=== PATIENT | male | born 1950 | race African-American/Black ===

== ENCOUNTER 2023-11-27 16:20 | Inpatient (IN) | payer MEDICARE, OTHER ==
[2023-11-27] MEDS ORDERED: Dextrose 5% in Water 1,000 ML IV PRN (17:10)
[2023-11-27] MEDS ORDERED: Glucagon 1 MG/ML KIT IM PRN (17:10)
[2023-11-27] MEDS ORDERED: Dextrose 50% Abboject 50 ML SYRINGE SLOW IVP PRN (17:10)
[2023-11-27] MEDS ORDERED: Ondansetron PF 4 MG/2 ML Vial IVP PRN (17:12)
[2023-11-27 17:13] VITALS: BMI 25.4
[2023-11-27] MEDS: Lactated Ringer's 1,000 ML IV SCH ×2 (18:45→20:29)
[2023-11-27] MEDS: Mometasone 200 MCG/Formoterol 5 MCG 120 PUFF INHALER INH SCH (19:00)
[2023-11-27 19:16] LABS: Lactic Acid 3.11 mmol/L (0.5-2.2)
[2023-11-27] MEDS: Verapamil 240 MG SR.TAB PO SCH (20:32)
[2023-11-27] MEDS: Carvedilol 25 MG TAB PO SCH (20:32)
[2023-11-27] MEDS: cloNIDine 0.2 MG TAB PO SCH (20:32)
[2023-11-27] MEDS: hydrALAZINE 25 MG TAB PO SCH (20:32)
[2023-11-27] MEDS: Pantoprazole 40 MG VIAL IVP SCH (20:32)
[2023-11-27] MEDS: metroNIDAZOLE 500 MG in Premix 1 BAG IVPB SCH (21:15)
[2023-11-28 06:17] LABS: Hematocrit 33.4 % (42.0-52.0); Hemoglobin 10.4 g/dL (14.0-18.0); Mean Corpuscular HGB CONC 31.1 g/dL (32.0-36.0); Mean Corpuscular Hemoglobin 23.1 pg (27.0-31.0); Mean Corpuscular Volume 74.1 fL (78.0-98.0); Mean Platelet Volume 9.7 fL (7.4-10.4); Platelet Count 242 10x3/uL (130-400); RBC Distribution Width 14.6 % (11.5-14.5); Red Blood Cell (RBC) Count 4.51 mill/uL (4.70-6.10)
[2023-11-28 06:33] LABS: ALT (SGPT) 11 U/L (8-55); AST (SGOT) 30 U/L (5-34); Albumin 2.4 g/dL (3.4-4.8); Alkaline Phosphatase 65 U/L (40-110); Anion Gap 16 mmol/L (10-20); BUN (Urea Nitrogen) 69 mg/dL (8.4-25.7); Bilirubin, Total 0.3 mg/dL (0.2-1.2); Calc. Creatinine Clearance 26 mL/min (70-130); Calcium 8.5 mg/dL (7.8-10.44); Carbon Dioxide 23 mmol/L (23-31); Chloride 107 mmol/L (98-107); Estimated GFR 20; Globulin 3.8 g/dL (2.4-3.5); Glucose 83 mg/dL (80-115); Potassium 3.2 mmol/L (3.5-5.1); Protein, Total 6.2 g/dL (5.8-8.1); Sodium 143 mmol/L (136-145)
[2023-11-28 06:54] LABS: Band 35 % (5-11); Lymphocytes 11 % (21-51); Microcytosis SLIGHT = 6-15 cells HPF (0-5); Monocytes 10 % (0-10); Neutrophil 45 % (42-75); Platelet Adequacy Comment Platelets Normal; Smudge Cells 5.7 %
[2023-11-28] MEDS ORDERED: cefTRIAXone\\ROCEPHIN 1 GM in Sodium Chloride 0.9% 100 ML IVPB SCH (08:00)
[2023-11-28 11:17] LABS: Lactic Acid 1.89 mmol/L (0.5-2.2)
[2023-11-28] MEDS: Hydrochlorothiazide 25 MG TAB PO SCH (11:41)
[2023-11-28] MEDS: Furosemide 40 MG TAB PO SCH (11:41)
[2023-11-28] MEDS: cefTRIAXone\\ROCEPHIN 1 GM in Sodium Chloride 0.9% 100 ML IVPB SCH (11:41)
[2023-11-28] MEDS: Potassium Chloride 20 MEQ in Lactated Ringer's 1,000 ML IV SCH (11:42)
[2023-11-28] MEDS: Verapamil 120 MG TAB PO SCH ×2 (13:15→21:20)
[2023-11-28] MEDS: Polyethylene Glycol 3350 17 GM Packet PO SCH (21:45)
[2023-11-29 04:24] LABS: Hematocrit 29.6 % (42.0-52.0); Hemoglobin 9.5 g/dL (14.0-18.0); Mean Corpuscular HGB CONC 32.1 g/dL (32.0-36.0); Mean Corpuscular Hemoglobin 23.4 pg (27.0-31.0); Mean Corpuscular Volume 72.9 fL (78.0-98.0); Platelet Count 263 10x3/uL (130-400); RBC Distribution Width 14.4 % (11.5-14.5); Red Blood Cell (RBC) Count 4.06 mill/uL (4.70-6.10)
[2023-11-29 04:25] LABS: ALT (SGPT) 10 U/L (8-55); AST (SGOT) 33 U/L (5-34); Albumin 2.4 g/dL (3.4-4.8); Alkaline Phosphatase 66 U/L (40-110); Anion Gap 14 mmol/L (10-20); BUN (Urea Nitrogen) 54 mg/dL (8.4-25.7); Bilirubin, Total 0.4 mg/dL (0.2-1.2); Calc. Creatinine Clearance 32 mL/min (70-130); Calcium 8.7 mg/dL (7.8-10.44); Carbon Dioxide 24 mmol/L (23-31); Chloride 110 mmol/L (98-107); Estimated GFR 26; Glucose 87 mg/dL (80-115); Potassium 3.1 mmol/L (3.5-5.1); Protein, Total 6.4 g/dL (5.8-8.1); Sodium 145 mmol/L (136-145)
[2023-11-29 05:22] LABS: Anisocytosis SLIGHT = 6-15 cells HPF (0-5); Band 18 % (5-11); Eosinophils 2 % (0-10); Hypochromia SLIGHT = 6-15 cells HPF (0-5); Large Platelets 2.9 % (0-5); Lymphocytes 10 % (21-51); Macrocytosis SLIGHT = 6-15 cells HPF (0-5); Monocytes 3 % (0-10); Neutrophil 68 % (42-75); Platelet Adequacy Comment Platelets Normal; Smudge Cells 4.9 %
[2023-11-29] MEDS: Potassium Chloride 20 MEQ in Premix 1 BAG IVPB SCH (09:15)
[2023-11-29] MEDS ORDERED: Ipratropium/Albuterol 3 ML NEB NEB PRN (11:09)
[2023-11-29] MEDS ORDERED: Bisacodyl 10 MG SUPP PR PRN (12:27)
[2023-11-29] MEDS: Labetalol HCl 100 MG/20 ML VIAL IVPB SCH (12:35)
[2023-11-29] MEDS: Lactated Ringer's 1,000 ML IV SCH (17:08)
[2023-11-30 04:31] LABS: #Basophils 0.04 10x3/uL (0.0-0.2); %Basophils 0.4 % (0.0-1.0); %Eosinophils 1.7 % (0.0-10.0); %Lymphocytes 12.9 % (21.0-51.0); %Monocytes 7.9 % (0.0-10.0); %Neutrophils 76.7 % (42.0-75.0); Hematocrit 31.3 % (42.0-52.0); Hemoglobin 9.2 g/dL (14.0-18.0); Mean Corpuscular HGB CONC 29.4 g/dL (32.0-36.0); Mean Corpuscular Hemoglobin 22.5 pg (27.0-31.0); Mean Corpuscular Volume 76.7 fL (78.0-98.0); Mean Platelet Volume 10.1 fL (7.4-10.4); Platelet Count 281 10x3/uL (130-400); RBC Distribution Width 14.6 % (11.5-14.5); Red Blood Cell (RBC) Count 4.08 mill/uL (4.70-6.10)
[2023-11-30 04:44] LABS: ALT (SGPT) 10 U/L (8-55); AST (SGOT) 25 U/L (5-34); Albumin 2.3 g/dL (3.4-4.8); Alkaline Phosphatase 75 U/L (40-110); Anion Gap 18 mmol/L (10-20); BUN (Urea Nitrogen) 41 mg/dL (8.4-25.7); Bilirubin, Total 0.5 mg/dL (0.2-1.2); Calc. Creatinine Clearance 34 mL/min (70-130); Calcium 8.8 mg/dL (7.8-10.44); Carbon Dioxide 21 mmol/L (23-31); Chloride 109 mmol/L (98-107); Estimated GFR 30; Globulin 3.9 g/dL (2.4-3.5); Glucose 112 mg/dL (80-115); Potassium 3.1 mmol/L (3.5-5.1); Protein, Total 6.2 g/dL (5.8-8.1); Sodium 145 mmol/L (136-145)
[2023-11-30] MEDS: Furosemide 20 MG (2 mL) VIAL SLOW IVP SCH (08:40)
[2023-11-30] MEDS: cloNIDine 0.2mg/24 Hour PATCH TD SCH (09:17)
[2023-11-30] MEDS: Potassium Chloride 20 MEQ in Lactated Ringer's 1,000 ML IV SCH (09:38)
[2023-11-30] MEDS: hydrALAZINE 20 MG/ML VIAL SLOW IVP PRN (23:22)
[2023-12-01 04:18] LABS: #Basophils 0.07 10x3/uL (0.0-0.2); %Basophils 0.6 % (0.0-1.0); %Eosinophils 1.8 % (0.0-10.0); %Lymphocytes 12.7 % (21.0-51.0); %Monocytes 8.9 % (0.0-10.0); %Neutrophils 75.6 % (42.0-75.0); Hematocrit 32.8 % (42.0-52.0); Hemoglobin 10.1 g/dL (14.0-18.0); Mean Corpuscular HGB CONC 30.8 g/dL (32.0-36.0); Mean Corpuscular Hemoglobin 22.7 pg (27.0-31.0); Mean Corpuscular Volume 73.9 fL (78.0-98.0); Mean Platelet Volume 9.8 fL (7.4-10.4); Platelet Count 308 10x3/uL (130-400); RBC Distribution Width 14.3 % (11.5-14.5); Red Blood Cell (RBC) Count 4.44 mill/uL (4.70-6.10)
[2023-12-01 04:29] LABS: ALT (SGPT) 10 U/L (8-55); AST (SGOT) 22 U/L (5-34); Albumin 2.4 g/dL (3.4-4.8); Alkaline Phosphatase 74 U/L (40-110); Anion Gap 19 mmol/L (10-20); BUN (Urea Nitrogen) 34 mg/dL (8.4-25.7); Bilirubin, Total 0.4 mg/dL (0.2-1.2); Calc. Creatinine Clearance 35 mL/min (70-130); Calcium 8.8 mg/dL (7.8-10.44); Carbon Dioxide 19 mmol/L (23-31); Chloride 110 mmol/L (98-107); Estimated GFR 31; Globulin 4.1 g/dL (2.4-3.5); Glucose 119 mg/dL (80-115); Potassium 3.2 mmol/L (3.5-5.1); Protein, Total 6.5 g/dL (5.8-8.1); Sodium 145 mmol/L (136-145)
[2023-12-01] MEDS: Potassium Chloride 20 MEQ in Premix 1 BAG IVPB SCH (06:08)
[2023-12-01] MEDS ORDERED: Verapamil 180 MG ER.TAB PO SCH ×2 (09:45→21:00)
[2023-12-01] MEDS: Verapamil 240 MG SR.TAB PO SCH (10:35)
[2023-12-01] MEDS: Carvedilol 25 MG TAB PO SCH (17:19)
[2023-12-01] MEDS: cefTRIAXone (ROCEPHIN) 1 GM VIAL ONE (17:25)
[2023-12-01] MEDS: Insulin Lispro 100 UNIT/ML 10 ML VIAL SC PRN (20:15)
[2023-12-02 04:40] LABS: #Basophils 0.03 10x3/uL (0.0-0.2); %Basophils 0.3 % (0.0-1.0); %Eosinophils 2.3 % (0.0-10.0); %Lymphocytes 14.9 % (21.0-51.0); %Monocytes 8.5 % (0.0-10.0); %Neutrophils 73.4 % (42.0-75.0); Hematocrit 32.6 % (42.0-52.0); Hemoglobin 9.8 g/dL (14.0-18.0); Mean Corpuscular HGB CONC 30.1 g/dL (32.0-36.0); Mean Corpuscular Hemoglobin 22.6 pg (27.0-31.0); Mean Corpuscular Volume 75.1 fL (78.0-98.0); Mean Platelet Volume 9.6 fL (7.4-10.4); Platelet Count 270 10x3/uL (130-400); RBC Distribution Width 14.3 % (11.5-14.5); Red Blood Cell (RBC) Count 4.34 mill/uL (4.70-6.10)
[2023-12-02 04:57] LABS: ALT (SGPT) 7 U/L (8-55); AST (SGOT) 15 U/L (5-34); Albumin 2.3 g/dL (3.4-4.8); Alkaline Phosphatase 67 U/L (40-110); Anion Gap 14 mmol/L (10-20); BUN (Urea Nitrogen) 35 mg/dL (8.4-25.7); Bilirubin, Total 0.3 mg/dL (0.2-1.2); Calc. Creatinine Clearance 37 mL/min (70-130); Calcium 8.3 mg/dL (7.8-10.44); Carbon Dioxide 22 mmol/L (23-31); Chloride 113 mmol/L (98-107); Estimated GFR 34; Globulin 3.9 g/dL (2.4-3.5); Glucose 130 mg/dL (80-115); Potassium 3.2 mmol/L (3.5-5.1); Protein, Total 6.2 g/dL (5.8-8.1); Sodium 146 mmol/L (136-145)
[2023-12-02] MEDS: Potassium Chloride 20 MEQ in Premix 1 BAG IVPB SCH (06:48)
[2023-12-02] MEDS: Verapamil 240 MG SR.TAB PO SCH (09:17)
[2023-12-02] MEDS: Furosemide 40 MG TAB PO SCH (09:17)
[2023-12-02] MEDS: Hydrochlorothiazide 25 MG TAB PO SCH (09:17)
[2023-12-02] MEDS: Enoxaparin 40 MG (0.4 mL) SYRINGE SC SCH (09:17)
[2023-12-02] MEDS: FLU (Fluad Triv) TS24-25 (65UP)/MF59C/PF 45 MCG/0.5 ML Syringe IM ONE (09:34)
[2023-12-02] MEDS: Insulin Lispro 100 UNIT/ML 10 ML VIAL SC PRN (17:07)
[2023-12-03 04:28] LABS: Hematocrit 29.3 % (42.0-52.0); Mean Corpuscular HGB CONC 30.7 g/dL (32.0-36.0); Mean Corpuscular Hemoglobin 22.6 pg (27.0-31.0); Mean Corpuscular Volume 73.6 fL (78.0-98.0); Mean Platelet Volume 9.9 fL (7.4-10.4); Platelet Count 331 10x3/uL (130-400); RBC Distribution Width 14.4 % (11.5-14.5); Red Blood Cell (RBC) Count 3.98 mill/uL (4.70-6.10)
[2023-12-03 04:45] LABS: ALT (SGPT) 8 U/L (8-55); AST (SGOT) 14 U/L (5-34); Albumin 2.3 g/dL (3.4-4.8); Alkaline Phosphatase 64 U/L (40-110); Anion Gap 13 mmol/L (10-20); BUN (Urea Nitrogen) 35 mg/dL (8.4-25.7); Bilirubin, Total 0.3 mg/dL (0.2-1.2); Calc. Creatinine Clearance 38 mL/min (70-130); Calcium 8.4 mg/dL (7.8-10.44); Carbon Dioxide 21 mmol/L (23-31); Chloride 113 mmol/L (98-107); Estimated GFR 34; Globulin 3.9 g/dL (2.4-3.5); Glucose 135 mg/dL (80-115); Potassium 3.3 mmol/L (3.5-5.1); Protein, Total 6.2 g/dL (5.8-8.1); Sodium 144 mmol/L (136-145)
[2023-12-03 05:59] LABS: Anisocytosis SLIGHT = 6-15 cells HPF (0-5); Elliptocytes SLIGHT = 2-5 cells HPF (0-1); Eosinophils 2 % (0-10); Hypochromia SLIGHT = 6-15 cells HPF (0-5); Lymphocytes 9 % (21-51); Microcytosis SLIGHT = 6-15 cells HPF (0-5); Monocytes 2 % (0-10); Neutrophil 85 % (42-75); Platelet Adequacy Comment Platelets Normal; Polychromasia SLIGHT = 2-3 cells HPF (0-2); Target Cells SLIGHT = 2-5 cells HPF (0-1)
[2023-12-03 09:41] LABS: Magnesium 1.6 mg/dL (1.6-2.6)
[2023-12-03] MEDS ORDERED: Electrolyte Replacement Protocol FS PRN (11:30)
[2023-12-03] MEDS: Magnesium 2 GM/50 ML(in water) 2 GM in Premix 1 BAG IVPB SCH (12:17)
[2023-12-03] MEDS ORDERED: hydrALAZINE 25 MG TAB PO PRN (12:33)
[2023-12-03 15:44] VITALS: BP 157/76; TEMP 97.6
[2023-12-03] MEDS: Potassium Bicarbonate/Cit Ac 20 MEQ TAB PO SCH (16:35)
[2023-12-03] MEDS ORDERED: Potassium Bicarbonate/Cit Ac 20 MEQ TAB PO SCH (17:00)
[2023-12-03 17:14] LABS: Hemoglobin A2 2.4 % (1.8-3.2); Hemoglobin F 0 % (0.0-2.0)
== END 2023-12-03 16:50 | DRG 380 ==
LOC: T4-B 16:20 → INTOOBSV 16:20 → OBSVTOIN 11-28 10:40 → 2SE 11-28 15:16
PROVIDERS: ADMIT Family Medicine; ATTEND Family Medicine
DX: K22.11 Ulcer of esophagus with bleeding (principal); J69.0 Pneumonitis due to inhalation of food and vomit; E87.0 Hyperosmolality and hypernatremia; E87.20 Acidosis, unspecified; I69.351 Hemiplegia and hemiparesis following cerebral infarction affecting right dominant side; N17.9 Acute kidney failure, unspecified; E86.0 Dehydration; I48.91 Unspecified atrial fibrillation; E87.6 Hypokalemia; D50.9 Iron deficiency anemia, unspecified; I69.322 Dysarthria following cerebral infarction; I69.391 Dysphagia following cerebral infarction; R13.10 Dysphagia, unspecified; E11.22 Type 2 diabetes mellitus with diabetic chronic kidney disease; I12.9 Hypertensive chronic kidney disease with stage 1 through stage 4 chronic kidney disease, or unspecified chronic kidney disease; N18.9 Chronic kidney disease, unspecified; E78.5 Hyperlipidemia, unspecified; Z79.899 Other long term (current) drug therapy; Z79.82 Long term (current) use of aspirin; Z79.84 Long term (current) use of oral hypoglycemic drugs; Z87.891 Personal history of nicotine dependence; E11.649 Type 2 diabetes mellitus with hypoglycemia without coma; F32.A Depression, unspecified; K56.41 Fecal impaction; Z23 Encounter for immunization
CPT/HCPCS: 36415; 36416; 70450; 74018; 74230; 80053; 82274; 83021; 83605; 83735; 84145; 85025; 93005; 93010; 93306; 94664; 96374; 96375; 96376; G0378; J0360; J0696; J1650; J1815; J1940; J2470; J3475; J3480; J7120

== ENCOUNTER 2023-12-14 13:56 | Inpatient (IN) | payer MEDICARE, MEDICAID ==
[2023-12-14] MEDS ORDERED: Fentanyl CADD 100 ML IV SCH (14:15)
[2023-12-14 14:26] LABS: #Basophils 0.06 10x3/uL (0.0-0.2); %Basophils 0.8 % (0.0-1.0); %Eosinophils 2.2 % (0.0-10.0); %Lymphocytes 22.7 % (21.0-51.0); %Monocytes 5.1 % (0.0-10.0); %Neutrophils 68.9 % (42.0-75.0); Hematocrit 26.8 % (42.0-52.0); Hemoglobin 8.2 g/dL (14.0-18.0); Mean Corpuscular HGB CONC 30.6 g/dL (32.0-36.0); Mean Corpuscular Hemoglobin 22.8 pg (27.0-31.0); Mean Corpuscular Volume 74.7 fL (78.0-98.0); Mean Platelet Volume 9.6 fL (7.4-10.4); Platelet Count 416 10x3/uL (130-400); RBC Distribution Width 14.8 % (11.5-14.5); Red Blood Cell (RBC) Count 3.59 mill/uL (4.70-6.10)
[2023-12-14 14:41] LABS: Analyzer IN Cardio ER; Base Excess (BEa) -0.1 mEq/L (-2.0 to +3.0); CO2 Tension 31.8 mmHg (35.0-45.0); Calcium, Ionized (arterial) 1.19 mmol/L (1.12-1.30); Carboxyhemoglobin (COHb) 0.3 gm% (0.0-3.0); Hematocrit-ABG 28 % (42.0-52.0); Hemoglobin (Hb) 9.4 g/dL (14.0-18.0); O2 Tension (PaO2), arterial 379.8 mmHg (> 70.0); Potassium - ABG Lab 5.83 mmol/L (3.70-5.30); pH, Arterial 7.478 (7.35-7.45)
[2023-12-14 14:43] LABS: Puncture Site Left Radial artery
[2023-12-14 14:50] LABS: Troponin I Less than 0.010 ng/mL (< 0.028)
[2023-12-14] MEDS ORDERED: Iopamidol-370 76% 500 ML MDV (1 ML CHARGE) ONE ×2 (14:54→14:57)
[2023-12-14 15:00] LABS: ALT (SGPT) 10 U/L (8-55); AST (SGOT) 12 U/L (5-34); Albumin 2.6 g/dL (3.4-4.8); Alkaline Phosphatase 74 U/L (40-110); Anion Gap 17 mmol/L (10-20); BUN (Urea Nitrogen) 45 mg/dL (8.4-25.7); Bilirubin, Total 0.2 mg/dL (0.2-1.2); Calc. Creatinine Clearance 0 mL/min (70-130); Calcium 8.9 mg/dL (7.8-10.44); Carbon Dioxide 21 mmol/L (23-31); Chloride 103 mmol/L (98-107); Estimated GFR 22; Globulin 4.9 g/dL (2.4-3.5); Glucose 459 mg/dL (83-110); Protein, Total 7.5 g/dL (5.8-8.1); Sodium 135 mmol/L (136-145)
[2023-12-14] MEDS ORDERED: cefTRIAXone (ROCEPHIN) 2 GM VIAL ONE (15:07)
[2023-12-14] MEDS ORDERED: Sodium Chloride 0.9% 100 ML ONE (15:08)
[2023-12-14] MEDS ORDERED: Azithromycin 500 MG VIAL ONE (15:08)
[2023-12-14] MEDS ORDERED: Dexamethasone 10 MG/ML VIAL ONE (15:12)
[2023-12-14] MEDS ORDERED: Albuterol 2.5 MG (0.5 mL) NEB ONE (15:16)
[2023-12-14] MEDS ORDERED: Ipratropium/Albuterol 3 ML NEB ONE (15:16)
[2023-12-14 15:23] LABS: Bacteria/HPF None Seen HPF (None Seen); Bilirubin Negative (Negative); Blood, Urine Negative (Negative); CAUTI Indications for Culture Alt mental st,lethar; Clarity Clear (Clear); Glucose, Urine (Dipstick) Greater than 1000 mg/dL (Negative); Ketone, Urine Negative (Negative); Leukocyte Negative Leu/uL (Negative); Nitrite Negative (Negative); Protein, Urine (Dipstick) 10 mg/dL (Neg-Trace); RBC/HPF 0-3 HPF (0-3); Specific Gravity, Urine 1.014 (1.002-1.036); Squamous Epithelial 0-3 HPF (0-3); Urobilinogen Normal mg/dL (Less than 2); WBC/HPF 0-3 HPF (0-3)
[2023-12-14 15:24] LABS: Urine Culture Reflex No No
[2023-12-14] MEDS ORDERED: Sodium Bicarb 50 MEQ/50 ML Abboject 8.4% SYRINGE ONE (15:25)
[2023-12-14] MEDS ORDERED: Insulin Regular, Human 100 UNIT/ML 10 ML VIAL ONE (15:25)
[2023-12-14] MEDS ORDERED: CALCIUM GLUC 1 GM/NS 50 ML IV Bag ONE (15:25)
[2023-12-14 17:17] LABS: Lactic Acid 3.03 mmol/L (0.5-2.2)
[2023-12-14] MEDS ORDERED: Ipratropium/Albuterol 3 ML NEB NEB PRN (17:39)
[2023-12-14] MEDS ORDERED: Ventilator Sedation Protocol 1 EACH FS SCH (17:45)
[2023-12-14] MEDS ORDERED: Dextrose 5% in Water 1,000 ML IV PRN (17:48)
[2023-12-14] MEDS ORDERED: Glucagon 1 MG/ML KIT IM PRN (17:48)
[2023-12-14] MEDS ORDERED: DISCONTINUE PREVIOUS NARCOTIC PAIN MEDICATIONS AND BENZODIAZEPINES FS SCH (18:45)
[2023-12-14] MEDS ORDERED: Fentanyl BOLUS 250 ML IVPB PRN (18:45)
[2023-12-14] MEDS ORDERED: Morphine 2 MG/ML VIAL SLOW IVP PRN (18:45)
[2023-12-14] MEDS ORDERED: Propofol BOLUS 1,000 MG/100 ML VIAL IV PRN (18:45)
[2023-12-14] MEDS ORDERED: Lorazepam 2 MG/ML VIAL SLOW IVP PRN (18:45)
[2023-12-14 19:14] LABS: Anion Gap 14 mmol/L (10-20); BUN (Urea Nitrogen) 42 mg/dL (8.4-25.7); Calc. Creatinine Clearance 0 mL/min (70-130); Calcium 8.6 mg/dL (7.8-10.44); Carbon Dioxide 21 mmol/L (23-31); Chloride 109 mmol/L (98-107); Estimated GFR 28; Glucose 338 mg/dL (83-110); Potassium 5.4 mmol/L (3.5-5.1); Sodium 139 mmol/L (136-145)
[2023-12-14] MEDS: Ipratropium/Albuterol 3 ML NEB NEB SCH (19:40)
[2023-12-14 20:00] VITALS: BMI 22.5
[2023-12-14] MEDS: Propofol 1,000 MG/100 ML VIAL IV PRN (20:01)
[2023-12-14] MEDS: Lactated Ringer's 1,000 ML IV SCH (20:10)
[2023-12-14] MEDS: Lactated Ringer's 500 ML IV SCH (20:10)
[2023-12-14] MEDS: Electrolyte Replacement Protocol 1 EACH IVPB ONE (20:20)
[2023-12-14] MEDS: Ventilator Sedation Protocol 1 EACH FS ONE (20:21)
[2023-12-14] MEDS: Magnesium 2 GM/50 ML(in water) 2 GM in Premix 1 BAG IVPB SCH (20:24)
[2023-12-14 20:35] LABS: Lactic Acid 2.71 mmol/L (0.5-2.2)
[2023-12-14] MEDS: Sodium Polystyrene Sulfonate 15 GM (60 mL) BOT PO SCH (20:35)
[2023-12-14] MEDS: Ampicillin/Sulbactam 3 GM in Sodium Chloride 0.9% 100 ML IVPB SCH (21:44)
[2023-12-14] MEDS: Insulin Lispro 100 UNIT/ML 10 ML VIAL SC PRN (21:45)
[2023-12-14] MEDS: Ampicillin/Sulbactam 3 GM VIAL ONE (21:57)
[2023-12-15 00:30] LABS: Anion Gap 15 mmol/L (10-20); BUN (Urea Nitrogen) 43 mg/dL (8.4-25.7); Calc. Creatinine Clearance 29 mL/min (70-130); Calcium 8.5 mg/dL (7.8-10.44); Carbon Dioxide 22 mmol/L (23-31); Chloride 107 mmol/L (98-107); Estimated GFR 25; Glucose 380 mg/dL (83-110); Potassium 5.2 mmol/L (3.5-5.1); Sodium 139 mmol/L (136-145)
[2023-12-15] MEDS: Fentanyl CADD 100 ML IV SCH (02:11)
[2023-12-15 04:35] LABS: #Basophils Less than 0.03 10x3/uL (0.0-0.2); #Eosinophils Less than 0.03 10x3/uL (0.0-0.7); %Basophils 0.1 % (0.0-1.0); %Lymphocytes 7.3 % (21.0-51.0); %Neutrophils 91.2 % (42.0-75.0); Hematocrit 24.4 % (42.0-52.0); Hemoglobin 7.5 g/dL (14.0-18.0); Mean Corpuscular HGB CONC 30.7 g/dL (32.0-36.0); Mean Corpuscular Hemoglobin 22.8 pg (27.0-31.0); Mean Corpuscular Volume 74.2 fL (78.0-98.0); Mean Platelet Volume 10.1 fL (7.4-10.4); Platelet Count 444 10x3/uL (130-400); RBC Distribution Width 14.8 % (11.5-14.5); Red Blood Cell (RBC) Count 3.29 mill/uL (4.70-6.10)
[2023-12-15 04:43] LABS: Lactic Acid 3.58 mmol/L (0.5-2.2)
[2023-12-15 04:44] LABS: ALT (SGPT) 7 U/L (8-55); AST (SGOT) 9 U/L (5-34); Albumin 2.2 g/dL (3.4-4.8); Alkaline Phosphatase 66 U/L (40-110); Anion Gap 17 mmol/L (10-20); BUN (Urea Nitrogen) 46 mg/dL (8.4-25.7); Bilirubin, Total 0.2 mg/dL (0.2-1.2); Calc. Creatinine Clearance 28 mL/min (70-130); Calcium 8.6 mg/dL (7.8-10.44); Carbon Dioxide 19 mmol/L (23-31); Cardiac Risk 4.2 (Less than 4.5); Chloride 108 mmol/L (98-107); Cholesterol 109 mg/dl (< 200 Desired); Estimated GFR 24; Globulin 4.2 g/dL (2.4-3.5); Glucose 316 mg/dL (83-110); HDL Cholesterol 26 mg/dL (>60 Neg Risk); LDL Cholesterol, Calculated 74 mg/dL; Protein, Total 6.4 g/dL (5.8-8.1); Sodium 139 mmol/L (136-145); Triglycerides 43 mg/dL (Less than 150)
[2023-12-15] MEDS ORDERED: Bisacodyl 10 MG SUPP PR PRN (05:34)
[2023-12-15] MEDS ORDERED: Docusate 100 MG CAP PO PRN (05:34)
[2023-12-15] MEDS: Insulin Lispro 100 UNIT/ML 10 ML VIAL SC PRN (05:59)
[2023-12-15] MEDS: Insulin Glargine 30 UNITS/0.3 ML VIAL SC SCH (06:01)
[2023-12-15 07:48] LABS: Lactic Acid 2.06 mmol/L (0.5-2.2)
[2023-12-15] MEDS: Pantoprazole 40 MG VIAL IVP SCH ×2 (08:00→21:44)
[2023-12-15 09:49] VITALS: BMI 22.5
[2023-12-15] MEDS: Dexmedetomidine In 0.9 % NaCl 100 ML IVPB SCH (10:17)
[2023-12-15] MEDS: Apixaban 2.5 MG TAB PO SCH (20:08)
[2023-12-15] MEDS ORDERED: Ipratropium/Albuterol 3 ML NEB NEB PRN (21:29)
[2023-12-15] MEDS: methylPREDNISolone Sod Succ 40 MG VIAL IVP SCH (21:44)
[2023-12-16] MEDS ORDERED: DC Sedation Protocol FS SCH (00:35)
[2023-12-16] MEDS: Sodium Chloride 0.45% 1,000 ML IV SCH (00:52)
[2023-12-16 04:44] LABS: #Basophils Less than 0.03 10x3/uL (0.0-0.2); #Eosinophils Less than 0.03 10x3/uL (0.0-0.7); %Basophils 0.1 % (0.0-1.0); %Lymphocytes 3.2 % (21.0-51.0); %Neutrophils 95.1 % (42.0-75.0); Hematocrit 31.6 % (42.0-52.0); Hemoglobin 9.2 g/dL (14.0-18.0); Mean Corpuscular HGB CONC 29.1 g/dL (32.0-36.0); Mean Corpuscular Hemoglobin 22.9 pg (27.0-31.0); Mean Corpuscular Volume 78.8 fL (78.0-98.0); Mean Platelet Volume 9.9 fL (7.4-10.4); Platelet Count 464 10x3/uL (130-400); RBC Distribution Width 15.4 % (11.5-14.5); Red Blood Cell (RBC) Count 4.01 mill/uL (4.70-6.10)
[2023-12-16 04:56] LABS: ALT (SGPT) 7 U/L (8-55); AST (SGOT) 10 U/L (5-34); Albumin 2.5 g/dL (3.4-4.8); Alkaline Phosphatase 80 U/L (40-110); Anion Gap 13 mmol/L (10-20); BUN (Urea Nitrogen) 38 mg/dL (8.4-25.7); Bilirubin, Total 0.2 mg/dL (0.2-1.2); Calc. Creatinine Clearance 32 mL/min (70-130); Calcium 8.7 mg/dL (7.8-10.44); Carbon Dioxide 22 mmol/L (23-31); Chloride 109 mmol/L (98-107); Estimated GFR 28; Globulin 4.3 g/dL (2.4-3.5); Glucose 208 mg/dL (83-110); Potassium 4.3 mmol/L (3.5-5.1); Protein, Total 6.8 g/dL (5.8-8.1); Sodium 140 mmol/L (136-145)
[2023-12-16] MEDS: Insulin Glargine 30 UNITS/0.3 ML VIAL SC SCH (10:09)
[2023-12-16] MEDS: Lorazepam 2 MG/ML VIAL SLOW IVP PRN (10:37)
[2023-12-16] MEDS ORDERED: hydrALAZINE 20 MG/ML VIAL SLOW IVP PRN (10:52)
[2023-12-16] MEDS: Carvedilol 25 MG TAB PO SCH ×2 (10:56→20:48)
[2023-12-16] MEDS: Verapamil 240 MG SR.TAB PO SCH ×2 (12:36→20:50)
[2023-12-17] MEDS: Dextrose 50% Abboject 50 ML SYRINGE SLOW IVP PRN (05:31)
[2023-12-17 07:23] LABS: #Basophils 0.06 10x3/uL (0.0-0.2); %Basophils 0.7 % (0.0-1.0); %Eosinophils 1.2 % (0.0-10.0); %Lymphocytes 25.4 % (21.0-51.0); %Monocytes 8.8 % (0.0-10.0); %Neutrophils 63.6 % (42.0-75.0); Hematocrit 32.4 % (42.0-52.0); Hemoglobin 9.8 g/dL (14.0-18.0); Mean Corpuscular HGB CONC 30.2 g/dL (32.0-36.0); Mean Corpuscular Hemoglobin 22.6 pg (27.0-31.0); Mean Corpuscular Volume 74.8 fL (78.0-98.0); Mean Platelet Volume 9.6 fL (7.4-10.4); Platelet Count 479 10x3/uL (130-400); RBC Distribution Width 15.3 % (11.5-14.5); Red Blood Cell (RBC) Count 4.33 mill/uL (4.70-6.10)
[2023-12-17 07:38] LABS: ALT (SGPT) 8 U/L (8-55); AST (SGOT) 16 U/L (5-34); Albumin 2.5 g/dL (3.4-4.8); Alkaline Phosphatase 76 U/L (40-110); Anion Gap 13 mmol/L (10-20); BUN (Urea Nitrogen) 28 mg/dL (8.4-25.7); Bilirubin, Total 0.3 mg/dL (0.2-1.2); Calc. Creatinine Clearance 39 mL/min (70-130); Calcium 8.6 mg/dL (7.8-10.44); Carbon Dioxide 24 mmol/L (23-31); Chloride 106 mmol/L (98-107); Estimated GFR 37; Globulin 4.4 g/dL (2.4-3.5); Glucose 137 mg/dL (83-110); Potassium 3.7 mmol/L (3.5-5.1); Protein, Total 6.9 g/dL (5.8-8.1); Sodium 139 mmol/L (136-145)
[2023-12-17 07:48] LABS: Hypochromia SLIGHT = 6-15 cells HPF (0-5); Microcytosis SLIGHT = 6-15 cells HPF (0-5); Platelet Adequacy Comment Platelets Increased; Polychromasia SLIGHT = 2-3 cells HPF (0-2)
[2023-12-17] MEDS: Pantoprazole DR 40 MG TAB PO SCH (08:29)
[2023-12-17] MEDS: FLU (Fluad Triv) TS24-25 (65UP)/MF59C/PF 45 MCG/0.5 ML Syringe IM ONE (08:34)
[2023-12-17] MEDS: Ampicillin/Sulbactam 3 GM in Sodium Chloride 0.9% 100 ML IVPB SCH (11:52)
[2023-12-17] MEDS: Metoprolol Tartrate 25 MG TAB PO SCH (20:14)
[2023-12-17] MEDS: Atorvastatin Calcium 40 MG TAB PO SCH (20:14)
[2023-12-17] MEDS: dilTIAZem 30 MG TAB PO SCH (20:33)
[2023-12-18 04:40] LABS: #Basophils 0.08 10x3/uL (0.0-0.2); %Eosinophils 1.2 % (0.0-10.0); %Lymphocytes 28.5 % (21.0-51.0); %Monocytes 9.9 % (0.0-10.0); ALT (SGPT) 6 U/L (8-55); AST (SGOT) 16 U/L (5-34); Albumin 2.5 g/dL (3.4-4.8); Alkaline Phosphatase 76 U/L (40-110); Anion Gap 14 mmol/L (10-20); BUN (Urea Nitrogen) 23 mg/dL (8.4-25.7); Bilirubin, Total 0.4 mg/dL (0.2-1.2); Calc. Creatinine Clearance 38 mL/min (70-130); Calcium 8.6 mg/dL (7.8-10.44); Carbon Dioxide 20 mmol/L (23-31); Chloride 107 mmol/L (98-107); Estimated GFR 36; Globulin 4.3 g/dL (2.4-3.5); Glucose 126 mg/dL (83-110); Hematocrit 35.4 % (42.0-52.0); Hemoglobin 10.1 g/dL (14.0-18.0); Mean Corpuscular HGB CONC 28.5 g/dL (32.0-36.0); Mean Corpuscular Hemoglobin 22.7 pg (27.0-31.0); Mean Corpuscular Volume 79.7 fL (78.0-98.0); Mean Platelet Volume 9.8 fL (7.4-10.4); Platelet Count 440 10x3/uL (130-400); Potassium 3.7 mmol/L (3.5-5.1); Protein, Total 6.8 g/dL (5.8-8.1); RBC Distribution Width 15.3 % (11.5-14.5); Red Blood Cell (RBC) Count 4.44 mill/uL (4.70-6.10); Sodium 137 mmol/L (136-145)
[2023-12-18] MEDS: Famotidine 20 MG TAB PO SCH (07:37)
[2023-12-18] MEDS: Aspirin Chewable 81 MG TAB PO SCH (07:38)
[2023-12-18] MEDS ORDERED: Albuterol 2.5 MG (3 mL) NEB NEB PRN (11:08)
[2023-12-18] MEDS ORDERED: Acetaminophen 325 MG TAB PO PRN (11:22)
[2023-12-18] MEDS ORDERED: Ipratropium/Albuterol 3 ML NEB NEB PRN (11:52)
[2023-12-18] MEDS: cloNIDine 0.2mg/24 Hour PATCH TD SCH (13:26)
[2023-12-18] MEDS: Mometasone 200 MCG/Formoterol 5 MCG 120 PUFF INHALER INH SCH (19:43)
[2023-12-18 20:08] VITALS: BP 179/96; TEMP 97.8
[2023-12-18] MEDS: Apixaban 2.5 MG TAB PO SCH (20:36)
== END 2023-12-18 21:49 | disposition hospice, inpatient (51) | DRG 871 ==
LOC: ERS 13:56 → CCU 17:20 → 2SE 12-18 14:50
PROVIDERS: ADMIT Emergency Medicine; ATTEND Emergency Medicine
PROC: 4A033R1 Measurement of Arterial Saturation, Peripheral, Percutaneous Approach (ICD-10-PCS; principal; 2023-12-14)
PROC: 5A1935Z Respiratory Ventilation, Less than 24 Consecutive Hours (ICD-10-PCS; 2023-12-14)
DX: A41.9 Sepsis, unspecified organism (principal); G93.41 Metabolic encephalopathy; J18.9 Pneumonia, unspecified organism; J69.0 Pneumonitis due to inhalation of food and vomit; J96.01 Acute respiratory failure with hypoxia; I63.431 Cerebral infarction due to embolism of right posterior cerebral artery; I69.351 Hemiplegia and hemiparesis following cerebral infarction affecting right dominant side; N17.9 Acute kidney failure, unspecified; E87.1 Hypo-osmolality and hyponatremia; E87.20 Acidosis, unspecified; N18.4 Chronic kidney disease, stage 4 (severe); F32.A Depression, unspecified; R65.20 Severe sepsis without septic shock; Z66 Do not resuscitate; E78.5 Hyperlipidemia, unspecified; D63.1 Anemia in chronic kidney disease; E83.42 Hypomagnesemia; E87.5 Hyperkalemia; E11.65 Type 2 diabetes mellitus with hyperglycemia; E11.22 Type 2 diabetes mellitus with diabetic chronic kidney disease; I12.9 Hypertensive chronic kidney disease with stage 1 through stage 4 chronic kidney disease, or unspecified chronic kidney disease; J44.9 Chronic obstructive pulmonary disease, unspecified; Z51.5 Encounter for palliative care; Z79.899 Other long term (current) drug therapy; Z79.82 Long term (current) use of aspirin; I69.322 Dysarthria following cerebral infarction; I69.391 Dysphagia following cerebral infarction
CPT/HCPCS: 0042T; 36415; 36416; 36600; 51702; 70450; 70496; 70498; 71045; 80053; 80061; 81001; 82010; 82805; 83605; 84145; 84484; 85025; 86850; 86900; 86901; 87040; 87086; 93005; 94003; 94640; 94760; 96365; 96366; 96367; 96368; 96375; J0295; J0456; J0613; J0696; J1100; J1815; J2060; J2470; J2704; J2919; J3010; J3475; J7120; J7611; J7620; J7999; Q9967